=== PATIENT | male | born 1980 | race Caucasian/White ===

== ENCOUNTER → 2018-02-22 | Outpatient (CLI) | payer BC, OTHER ==
[~2018-02-22] MED LIST: GADOBUTROL 10 MMOL/10 ML VIAL IV ONE; LOSA-73 PO; OMEP20CA9 PO
--- NOTE | 2018-02-22 12:21 | KCIC ---
MRI Brain with and without contrast History: Vertigo, syncope, occipital pain and neck pain, blurred vision of the left eye Technique: Multiplanar, multi sequential pre and postcontrast MR imaging was performed of the brain. Comparison: January 13, 2015 Findings: There is no evidence of recent infarct or cytotoxic edema. The ventricles, sulci, and cisterns are within normal limits in size and configuration. There is no significant midline shift, intraaxial mass effect, or focal abnormal extra-axial fluid collection. There is no new significant signal abnormality including hemosiderin deposition of the brain parenchyma. There is no nodular parenchymal or leptomeningeal enhancement. There is preservation of the major intracranial flow-voids at the skull base. The cerebellar tonsils are normal in location. There is no significant abnormality of the pineal gland or pituitary gland. There are small mucous retention cysts/mild mucosal thickening of the inferior maxillary sinuses. The mastoid air cells are aerated. There is similar nonspecific mild heterogeneity of the marrow of the clivus which could be due to residual red marrow. Impression: 1. There is no new significant intracranial abnormality. Electronically signed by: Ga Linares MD (02/22/2018 12:17 PM) [id number]
== END | disposition home or self-care (01) ==
LOC: KCIC MRI 02-21 11:15
PROVIDERS: ATTEND Physician Assistant
DX: R55 Syncope and collapse (principal); M54.81 Occipital neuralgia; M54.12 Radiculopathy, cervical region; H81.49 Vertigo of central origin, unspecified ear
CPT/HCPCS: 70553; A9585